=== PATIENT | male | born 1930 | race Caucasian/White ===

== ENCOUNTER 2017-04-04 22:17 | Emergency (ER) | payer MEDICARE, OTHER ==
[2015-10-07 10:43] VITALS: BMI 23.7
[~2017-04-04 22:17] MED LIST: ASCORBIC ACID500 MG PO; ASPIRIN EC81 M1 PO; ASPIRIN EC81 MG; ATROVENT 0.03%30 ML NS; AVAPRO300 MG PO; CALCIUM 600+D T1 TA1 PO; CALTRATE-600600 MG PO; CYMBALTA60 MG PO; HYDROCHLOROTH12.5 M1 PO; MOBIC7.5 MG PO; MULTIPLE VITAMI1 TA1 PO; NASONEX NASAL S17 GM NS; NORCO 5/325 TAB1 TA1 PO; NORVASC2.5 MG PO; PATANASE30.5 GM NS; PLAVIX75 MG PO; PRAVACHOL20 MG PO; RESTORIL15 MG PO; SPIRIVA18 MCG; SPIRIVA18 MCG INH; TOPROL XL25 MG PO; TRIGLIDE160 MG PO; TYLENOL ARTHRI650 MG PO; XANAX0.25 MG PO; ZOCOR20 MG PO; ZYLOPRIM100 MG PO
[2017-04-04 22:55] LABS: BASOPHILS 0.4 % (0-2); EOSINOPHILS 4.4 % (0-7); HEMATOCRIT 36.4 % (42.0-54.0); HEMOGLOBIN 12.4 g/dL (13.5-17.5); IMMATURE GRANULOCYTES 0.7 % (0-5); LYMPHOCYTES 20.6 % (15-50); MCH 32.8 pg (26.0-34.0); MCHC 34.1 g/dL (31.0-37.0); MCV 96.3 fL (80.0-100.0); MEAN PLATELET VOLUME 10.6 fL (7.4-10.4); MONOCYTES 7.3 % (2-11); NEUTROPHILS 66.6 % (40-80); PLATELET COUNT 240 10x3/uL (130-400); RBC 3.78 10x6/uL (4.20-6.10); RDW 13.4 % (11.5-14.5); WBC 5.6 10x3/uL (4.8-10.8)
[2017-04-04 23:06] LABS: ALBUMIN 3.8 g/dL (3.4-5.0); ANION GAP 13.6 mmol/L (8-16); BILIRUBIN - TOTAL 0.51 mg/dL (0.2-1.3); CALCIUM 8.7 mg/dL (8.5-10.1); CARBON DIOXIDE 26.1 mmol/L (21.0-32.0); POTASSIUM - SERUM 3.7 mmol/L (3.5-5.1); PROTEIN - SERUM 7.3 g/dL (6.4-8.2)
== END 2017-04-04 23:28 | disposition home or self-care (01) ==
LOC: D.ER 22:17
PROVIDERS: Emergency Medicine
DX: R55 Syncope and collapse (principal); N17.9 Acute kidney failure, unspecified; E86.0 Dehydration; I45.10 Unspecified right bundle-branch block

== ENCOUNTER → 2017-06-25 08:46 | Outpatient (CLI) | payer MEDICARE, OTHER ==
[2015-10-07 10:43] VITALS: BMI 23.7
== END | disposition home or self-care (01) ==
LOC: D.CT 08:46
DX: I71.4 Abdominal aortic aneurysm, without rupture (principal)

== ENCOUNTER → 2017-10-02 07:10 | Outpatient (CLI) | payer MEDICARE, OTHER ==
[~2017-10-02] VITALS: Ht 172.7 cm; Wt 78.6 kg
--- NOTE | ~2017-10-02 | HEMODYNAMI ---
PATIENT:LOVE HERRERA MEDICAL RECORD: [id number] : 34 LOCATION:D.CAT ADMISSION DATE: 10/02/17 Generatedon:10/02/20179:43 Patient name: LOVE HERRERA Patient #: [id number] SSN: : 1930 Date of study: 10/02/2017 Page: Of Hemodynamic Procedure Report Patient Data Patient Demographics Procedure consent was obtained First Name: LOVE Gender: Male Last Name: JAVIER : 1930 Patient #: [id number] Age: 86 year(s) Race: Unknown Additional ID: [id number] Contact details Address: [address] [place] [address] pt State: [place] City: [place] Zip code: [address] Past Medical History Allergies: No known allergies Admission Admission Data Admission Date: 10/02/2017 Admission Time: 7:10 Procedure Procedure Types Cath Procedure Peripheral Cath Diagnostic Procedure Cath Peripheral Sluub-Zpizueu-Zdq-Off Procedure Description Procedure Date Procedure Date: 10/02/2017 Procedure Start Time: 9:35 Procedure End Time: 9:43 Procedure Staff Name Function Aren Pa MD Performing Physician Stephanie Madsen RT Monitor Clinton Lucero RN Nurse Max Solis RT Scrub Procedure Data Cath Procedure Fluoroscopy Diagnostic fluoroscopy Total fluoroscopy Time: 0.6 time: 0.6 min min Diagnostic fluoroscopy Total fluoroscopy dose: 208 dose: 208 mGy mGy Contrast Material Contrast Material Type Amount (ml) Isovue 370 40 Entry Location Entry Primary Successful Side Size Upsize Upsize Entry Closure Succes sful Closure Location (Fr) 1 (Fr) 2 (Fr) Remarks Device Remarks Femoral Right 5 Fr Exoseal artery Estimated blood loss: 10 ml Diagnostic catheters Device Type Used For End Catheter Placement DIAGNOSTIC UF 5Fr Abdominal catheter ([id number]) aortogram with runoff Procedure Complications No complications Procedure Medications Medication Administration Route Dosage Oxygen NC 2 l/min Lidocaine 2% added to field 20 Heparin Flush Bag added to field 2 bags (1000units/500ml NS) 0.9% NaCl I.V. 100 ml/hr Versed I.V. 2 mg Fentanyl I.V. 100 mcg Versed I.V. 2 mg Fentanyl I.V. 50 mcg Versed I.V. 1 mg Hemodynamics Rest Heart Rate: 64 (bpm) Snapshots Pre Cath Intra NCS Post Cath Vital Signs Time Heart Resp SPO2 etCO2 NIBP (mmHg) Rhythm Pain Sedation Rate (ipm) (%) (mmHg) Status Level (bpm) 9:12:08 69 14 95 0 137/79(93) NSR 0 (11) 10(A) , No pain 9:16:51 66 13 96 28.4 144/69(116) NSR 0 (11) 10(A) , No pain 9:21:36 66 13 95 25.4 136/73(116) NSR 0 (11) 10(A) , No pain 9:26:20 63 14 96 28.4 126/64(106) NSR 0 (11) 10(A) , No pain 9:31:01 65 15 95 0 114/60(89) NSR 0 (11) 10(A) , No pain 9:35:40 66 15 96 23.2 123/66(92) NSR 0 (11) 10(A) , No pain 9:40:10 70 16 94 0 103/62(91) NSR 0 (11) 10(A) , No pain Medications Time Medication Route Dose Verified Delivered Reason Notes Effec tiveness by by 9:10:52 Oxygen NC 2 Aren Rodolfoie used for l/min Thierno Lucero RN procedure 9:10:59 Lidocaine 2% added 20ml Aren Younger for local to vial Thierno Pa MD anesthetic field 9:11:05 Heparin Flush added 2 Arenmarta Younger used for Bag to bags Thierno Pa MD procedure (1000units/500ml field NS) 9:11:14 0.9% NaCl I.V. 100 Aren Alonzo Per ml/hr Thierno Lucero RN physician 9:34:19 Versed I.V. 2 mg Aren Reynoldsie for Thierno Lucero RN sedation 9:34:26 Fentanyl I.V. 100 Aren Reynoldsie for mcg Thierno Lucero RN sedation 9:36:13 Versed I.V. 2 mg Aren Reynoldsie for Tauth MD Lucero RN sedation 9:36:22 Fentanyl I.V. 50 Aren Alonzo for mcg Thierno Lucero RN sedation 9:39:58 Versed I.V. 1 mg Aren Lucero RN sedation Procedure Log Time Note 8:53:08 Time tracking: Regular hours (M-F 7:00 - 5:00) 8:53:12 Plan of Care:Hemodynamics will remain stable., Cardiac rhythm will remain stable., Comfort level will be maintained., Respiratory function will remain adequate., Patient/ family verbilizes understanding of procedure., Procedure tolerated without complication., Recovers from procedure without complications.. 8:59:55 Max Solis RT(R) sent for patient. Start room use. 9:05:55 Patient received from Pre/Post Procedure Room to CCL 1 Alert and oriented. Tansferred to table in Supine position. 9:05:56 Warm blankets applied, and camilo hugger turned on for patient comfort. 9:05:56 Correct patient and procedure confirmed by team. 9:05:58 Signed procedure consent form obtained from patient. 9:05:59 ECG and BP/O2 sat monitors applied to patient. 9:06:02 Full Disclosure recording started 9:10:52 Oxygen 2 l/min NC was administered by Clinton Lucero RN; used for procedure; 9:10:59 Lidocaine 2% 20ml vial added to field was administered by Aren Pa MD; for local anesthetic; 9:11:05 Heparin Flush Bag (1000units/500ml NS) 2 bags added to field was administered by Aren Pa MD; used for procedure; 9:11:14 0.9% NaCl 100 ml/hr I.V. was administered by Clinton Lucero RN; Per physician; 9:11:17 Vital chart was started 9:14:41 Baseline sample Acquired. 9:14:44 Rhythm: sinus rhythm 9:14:55 H&P Date Dictated: 09/24/2017 Within 30 days and on chart., H&P Addendum completed by physician on day of procedure. (MUST COMPLETE FOR ALL OUTPATIENTS). 9:14:57 Pre-procedure instructions explained to patient. 9:14:57 Pre-op teaching completed and patient verbalized understanding. 9:15:00 Family in patients room. 9:15:02 Patient NPO since Midnight. 9:15:08 Patient allergic to No known allergies 9:15:40 Is the patient allergic to Iodine/contrast media? No. 9:15:41 Is patient on blood thinner?Yes 9:15:44 ACC The patient was administered the following blood thiners within the last 24 hours: ACCAspirin, ACCPlavix 9:15:46 Patient diabetic? No. 9:15:49 Previous problem with sedation/anesthesia? No ? 9:15:50 Snore? Yes 9:15:50 Sleep apnea? Yes 9:15:51 Deviated septum? No 9:15:52 Opens mouth fully? Yes 9:15:53 Sticks out tongue? Yes 9:15:59 Airway obstruction? Yes COPD 9:16:01 Dentures? No ? 9:16:07 Pre procedure: right dorsailis pedis pulse 2+ Normal; easily identifiable; not easily obliterated 9:16:09 Pre procedure: left dorsailis pedis pulse 2+ Normal; easily identifiable; not easily obliterated 9:16:12 Patient pain scale 0/10 ?. 9:16:20 IV patent on arrival in left forearm with 0.9% NaCl at [facility]. 9:16:23 Lab results completed and on chart. 9:16:26 Bilateral groins area was prepped with chlora-prep and draped in sterile fashion 9:16:27 Alarms reviewed by R. N. 9:16:27 Sharps counted by scrub and verified by R.N. 9:16:33 Use device set CATH PACK 9:16:44 ACIST Syringe (77399) opened to sterile field. 9:16:45 ACIST Hand Control (47252) opened to sterile field. 9:16:45 ACIST Manifold (59820) opened to sterile field. 9:16:46 Medline Cath Pack ([id number]) opened to sterile field. 9:16:47 Bag Decanter () opened to sterile field. 9:16:47 DIAGNOSTIC WIRE .035 260cm J wire (172541) opened to sterile field. 9:16:48 PERCUTANEOUS ENTRY 19GA needle opened to sterile field. 9:16:56 Tegaderm 4 x 4 (1626W) opened to sterile field. 9:26:23 Physician paged 9:29:41 Zero performed for pressure channel P1 9:33:21 Final Timeout: patient, procedure, and site verified with staff and physician. All members of the team are in agreement. 9:33:25 Left groin site verified by team. 9:33:27 Physical assessment completed. ASA score P 2 - A patient with mild systemic disease as per Aren Pa MD. 9:33:30 Sedation plan: IV Moderate Sedation Medication:Versed, Fentanyl 9:34:19 Versed 2 mg I.V. was administered by Clinton Lucero RN; for sedation; 9:34:26 Fentanyl 100 mcg I.V. was administered by Clinton Lucero RN; for sedation; 9:35:38 Procedure started. 9:35:48 Local anesthetic to left femerol artery with Lidocaine 2% by Aren Pa MD.INITIAL ACCESS ONLY 9:36:13 Versed 2 mg I.V. was administered by Clinton Lucero RN; for sedation; 9:36:22 Fentanyl 50 mcg I.V. was administered by Clinton Lucero RN; for sedation; 9:36:22 A 5 Fr sheath was inserted into the Right Femoral artery 9:36:33 A DIAGNOSTIC UF 5Fr catheter ([id number]) was advanced over the wire and used for Abdominal aortogram with runoff. 9:38:27 Catheter removed. 9:38:45 Sheath removed intact; hemostasis achieved with Exoseal to the Right Femoral artery. 9:38:47 Procedure ended.(Physican Out) 9:38:56 Fluoroscopy time 00.60 minutes. 9:38:59 Fluoroscopy dose: 208 mGy 9:38:59 Flurop Dose total: 208 9:39:47 Contrast amount:Isovue 370 40ml. 9:39:49 Sharps counted by scrub and verified by R.N. 9:39:50 Insertion/operative site no bleeding no hematoma. 9:39:54 Post-op/insertion site Left Femoral artery dressed using a 4 x 4 and Tegaderm. 9:39:58 Versed 1 mg I.V. was administered by Clinton Lucero RN; for sedation; 9:40:00 Post left femerol artery:stable, clean and dry 9:40:32 Post Procedure Pulses reassessed and unchanged 9:40:38 Post-procedure physical assessment completed. ASA score P 2 - A patient with mild systemic disease as per Aren Pa MD. 9:40:40 Post procedure rhythm: unchanged. 9:40:49 Estimated blood loss: 10 ml 9:40:51 Post procedure instruction explained to patient.Patient verbalizes understanding. 9:40:51 Patient needs reinforcement of post procedure teaching. 9:40:57 Procedure Complication : No complications 9:41:00 See physician's report for complete and final results. 9:41:24 EXOSEAL 5Fr (EX500) opened to sterile field. 9:41:56 Procedure and supply charges have been captured, reviewed, submitted and are correct. 9:43:07 Vital chart was stopped 9:43:08 Report given to Pre/Post Procedure Room. 9:43:11 Patient transfered to Pre/Post Procedure Room with Stretcher. 9:43:20 Procedure ended. 9:43:20 Full Disclosure recording stopped 9:43:22 End room use (Document Last) Device Usage Item Name Manufacture Quantity Catalog Hospital Part Current Minimal Lot# / Number Charge Number Stock Stock Serial# Code ACIST Acist 1 64571 030644 558807 225211 20 Syringe Medical (77494) Systems Inc ACIST Hand Acist 1 84575 593200 540595 986272 5 Control Medical (90022) Systems Inc ACIST Acist 1 19064 990968 440213 424705 5 Manifold Medical (27939) Systems Inc Medline Cath Cardinal 1 [id number] 999184 47784 876353 5 Pack Health ([id number]) Bag Decanter Microtek 1 2002S 803479 12700 389743 5 (2001S) Medical Inc. DIAGNOSTIC [facility] Eduardo 1 779051 055785 659327 420181 30 WIRE .035 260cm J wire (187755) PERCUTANEOUS Cook Medical 1 [id number] 652630 480930 5 ENTRY 19GA needle Tegaderm 4 x 3M 1 1626W 370247 266410 862291 5 4 (1626W) DIAGNOSTIC Cardinal 1 [id number] 349566 729267 780989 10 UF 5Fr Health catheter (205343N4) EXOSEAL 5Fr Cardinal 1 EX500 589284 103745 518707 10 (EX500) Health Signature Audit [place] Stage Time Signature Unsigned Intra-Procedure 10/02/2017 9:43:32 AM Counts RT(R) Signatures Monitor : Signature : Counts RT Date : Time : [address] [place] [address]
--- NOTE | ~2017-10-02 | OP ---
PATIENT NAME: LOVE HERRERA MEDICAL RECORD: [id number] :34 LOCATION:D.CAT ADMISSION DATE: SURGEON: NATALYA SCHWARTZ MD DATE OF OPERATION: 10/02/2017 PROCEDURES: 1. Aortofemoral runoff. 2. Abdominal aortography. INDICATION: Claudication and peripheral vascular disease. PROCEDURE IN DETAIL: After informed consent was obtained and after a detailed description of risks, benefits as well as alternative therapies, the patient elected to proceed with angiogram and aortofemoral runoff. The left femoral area was prepped and draped in normal sterile fashion. Left femoral artery was cannulated via modified Seldinger technique with placement of 5-Macedonian sheath. All catheters exchanged through this sheath. FINDINGS: Abdominal aortography was performed. The catheter was pulled down for aortofemoral runoff. Abdominal aortography reveals a well-positioned endovascular stent graft, no significant stenosis. The stent graft extends into both iliacs. It is widely patent through the both common iliacs. RIGHT LEG: A. Common iliac is replaced with a stent graft as above. The internal iliac and external iliacs are widely patent. B. Femoral system: The common superficial and deep femoral are widely patent with only mild irregularities. C. Popliteal and infrapopliteal vessels are patent with 3-vessel runoff to the foot, although diffusely diseased. LEFT LEG: A. Common iliac is replaced with a stent graft as above. The internal iliac and external iliacs are widely patent. B. Femoral system: The common superficial and deep femoral are widely patent with only mild irregularities. C. Popliteal and infrapopliteal vessels are patent with 3-vessel runoff to the foot, although diffusely diseased. OVERALL IMPRESSION: Wide patency of the previous abdominal aortic and iliac stent graft. No significant stenosis elsewise. Continue medical management of the peripheral vascular disease and peripheral risk factors. TRANSINT:[id number] Voice Confirmation ID: [id number] DOCUMENT ID: [id number] NATALYA SCHWARTZ MD at 1444 CC: [id number] DICTATION DATE: 10/02/17 0943 FARM RANCHER: 10/02/17 1314 DEP CLI 10/02/17 [facility] [address] [place] [id number]
[~2017-10-02 07:10] MED LIST changes: +BUPROPION XL150 MG PO; +CILOSTAZOL100 MG PO; +FUROSEMIDE20 MG PO
[2017-10-02 07:39] VITALS: BP 106/73; Ht 172.7 cm; Wt 78.6 kg
[2017-10-02 07:56] LABS: BASOPHILS 0.7 % (0-2); EOSINOPHILS 5.3 % (0-7); HEMATOCRIT 36.2 % (42.0-54.0); HEMOGLOBIN 12.5 g/dL (13.5-17.5); IMMATURE GRANULOCYTES 1.7 % (0-5); LYMPHOCYTES 16.6 % (15-50); MCH 33.1 pg (26.0-34.0); MCHC 34.5 g/dL (31.0-37.0); MCV 95.8 fL (80.0-100.0); MEAN PLATELET VOLUME 10.3 fL (7.4-10.4); MONOCYTES 10.9 % (2-11); NEUTROPHILS 64.8 % (40-80); RBC 3.78 10x6/uL (4.20-6.10); RDW 13.5 % (11.5-14.5); WBC 5.4 10x3/uL (4.8-10.8)
[2017-10-02 07:59] LABS: PLATELET COUNT 379 10x3/uL (130-400)
[2017-10-02 08:04] LABS: ANION GAP 15.8 mmol/L (8-16); CALCIUM 9.3 mg/dL (8.5-10.1); CARBON DIOXIDE 24.2 mmol/L (21.0-32.0); CREATININE - SERUM 1.9 mg/dL (0.6-1.3)
== END | disposition home or self-care (01) ==
LOC: D.CATH 07:10
PROVIDERS: Internal Medicine Interventional Cardiology
DX: I70.219 Atherosclerosis of native arteries of extremities with intermittent claudication, unspecified extremity (principal); I25.10 Atherosclerotic heart disease of native coronary artery without angina pectoris; E78.5 Hyperlipidemia, unspecified; I10 Essential (primary) hypertension; Z01.812 Encounter for preprocedural laboratory examination

== ENCOUNTER → 2018-11-13 08:02 | Outpatient (CLI) | payer MEDICARE, OTHER ==
[2017-10-02 07:39] VITALS: BMI 26.3
== END | disposition home or self-care (01) ==
LOC: D.CT 08:02
PROVIDERS: ATTEND Internal Medicine Cardiovascular Disease
DX: I71.4 Abdominal aortic aneurysm, without rupture (principal)

== ENCOUNTER → 2019-05-18 09:02 | Outpatient (CLI) | payer MEDICARE, OTHER ==
[2017-10-02 07:39] VITALS: BMI 26.3
--- NOTE | ~2019-05-18 | ST ---
PATIENT:ANDREA HERRERA MEDICAL RECORD: [id number] SEX: M LOCATION:[facility] ORDER #: ADMISSION DATE: 05/18/19 AGE OF PATIENT: 88 REFERRING PHYSICIAN: INTERPRETING PHYSICIAN: NATALYA SCHWARTZ MD DATE OF SERVICE: 05/18/2019 PROCEDURE: Nuclear stress test. INDICATION: Angina, coronary artery disease, shortness of breath, hypertension and hyperlipidemia. He was exercised on standard Lexiscan protocol with 33 mCi of sestamibi injected at peak stress, 11 mCi used previously for rest images. FINDINGS: Gated SPECT reveals preserved ejection fraction at 59% with good wall motioning and thickening and brightening throughout all segments. SPECT imaging: Cardiolite was used as myocardial perfusion agent. There is reversibility inferiorly, apically, and laterally. This includes the basal, mid, apical, inferior segments, the apex itself, apical lateral, mid lateral, basal lateral segments. The degree of reversibility is mild to moderate. The amount of myocardium involved is large. OVERALL IMPRESSION: This is an intermediate to high risk nuclear stress test. Reversibility inferiorly, apically, and laterally suggestive of hemodynamically significant multivessel coronary artery disease. TRANSINT:[id number] Voice Confirmation ID: [id number] DOCUMENT ID: [id number] NATALYA SCHWARTZ MD CC: BARRY PETE [id number] DICTATION DATE: 05/18/19 1701 MAT CUTTER: 05/19/19 0737 [facility] [place] 05/18/19 [facility] [address] [place] [address]
== END | disposition home or self-care (01) ==
LOC: D.HCCARDIO 09:02
PROVIDERS: ATTEND Internal Medicine Interventional Cardiology
DX: I25.10 Atherosclerotic heart disease of native coronary artery without angina pectoris (principal)

== ENCOUNTER 2019-05-29 07:04 | Outpatient (CLI) | payer MEDICARE, OTHER ==
[~2019-05-29] VITALS: Ht 172.7 cm; Wt 74.1 kg
--- NOTE | ~2019-05-29 | OP ---
PATIENT NAME: ANDREA HERRERA MEDICAL RECORD: [id number] :34 LOCATION:D.CAT ADMISSION DATE: SURGEON: NATALYA SCHWARTZ MD DATE OF OPERATION: 05/29/2019 PROCEDURES: 1. PTCA stent vein graft to RCA. 2. Left heart catheterization. 3. Selective coronary angiography. 4. Vein graft angiography. 5. MORENO angiography. INDICATION: Angina and coronary artery disease. PROCEDURE IN DETAIL: After informed consent was obtained and after a detailed description of risks, benefits as well as alternative therapies, the patient elected to proceed with angiogram and angioplasty. The right femoral area was prepped and draped in normal sterile fashion. Right femoral artery was cannulated via modified Seldinger with placement of 6-Azeri sheath. All catheters exchanged through this sheath. FINDINGS: Left ventriculogram was performed in standard 30-degree ROSALES view, reveals global hypokinesis, ejection fraction mildly depressed at 40%. SELECTIVE CORONARY ANGIOGRAPHY: 1. Left main is with 80% stenosis. 2. The left anterior descending is totally occluded. 3. Left circumflex is totally occluded. 4. MORENO to the LAD is patent. Distal LAD is patent, diffusely diseased. 5. Vein graft to the first obtuse marginal is patent. Distal obtuse marginal is widely patent. 6. Vein graft to the second obtuse marginal is patent. Distal obtuse marginal is widely patent. 7. Right coronary is totally occluded. 8. Vein graft to the right coronary is patent; however, there is 90% stenosis in the mid shaft. PTCA STENT OF THE VEIN GRAFT TO THE RCA: The stent used 3.5 x 15 mm [place]. Result was 0% residual stenosis. OVERALL IMPRESSION: Successful percutaneous transluminal coronary angioplasty stent of the vein graft to the right coronary artery going from 90% initial stenosis to 0% residual. TRANSINT:[id number] Voice Confirmation ID: [id number] DOCUMENT ID: [id number] NATALYA SCHWARTZ MD CC: [id number] DICTATION DATE: 05/29/19904 WEAVING SUPERVISOR: 05/29/19 1137 [facility] [address] [id number]
--- NOTE | ~2019-05-29 | HEMODYNAMI ---
PATIENT:ANDREA HERRERA MEDICAL RECORD: [id number] : 34 LOCATION:[facility] ADMISSION DATE: 05/29/19 Generatedon:05/29/20199:08 Patient name: ANDREA HERRERA Patient #: [id number] SSN: : Date of study: 05/29/2019 Page: Of Hemodynamic Procedure Report Patient Data Patient Demographics Procedure consent was obtained First Name: ANDREA Gender: Male Last Name: JAVIER : 1930 Middle Initial: LYNNETTE Age: 88 year(s) Patient #: [id number] Race: Unknown Additional ID: [id number] Contact details [address]: [address] [place] [address] [place] State: [place] City: [place] Zip code: [address] Past Medical History Performed procedures and imaging results Date Procedure Procedure Results Comments Stress testing Positive->Intermediate with SPECT MPI risk History of disease Date Diagnosis Comments CAD Allergies: No known allergies Admission Admission Data Admission Date: 05/29/2019 Admission Time: 7:04 Lab Results Lab Result Date: 05/29/2019 Lab Result Time: 0:00 Biochemistry Name Units Result Min Max BUN mg/dl 26 --(----)-* 7 18 Creatinine mg/dl 2.1 --(----)-* 0.6 1.3 eGFR ml/min 32 *-(----)-- 90 120 NONAFRICAN CBC Name Units Result Min Max Hematocrit % 35.2 *-(----)-- 42 54 Hemoglobin g/dl 11.7 *-(----)-- 13.5 17.5 Procedure Procedure Types Cath Procedure Diagnostic Procedure [facility] w/Coronaries Sedation Charges Moderate Sedation up to 15 minutes PCI Procedure Coronary Stent Coronary Stent Initial Hemochron ACT Test Procedure Description Procedure Date Procedure Date: 05/29/2019 Procedure Start Time: 8:48 Procedure End Time: 9:05 Procedure Staff Name Function Aren Pa MD Performing Physician Clinton Lucero RN Nurse Ann Marie Avilez RT Monitor Vanesa Bowen RT Scrub Procedure Data Cath Procedure Fluoroscopy Diagnostic fluoroscopy Total fluoroscopy Time: 3.9 time: 3.9 min min Diagnostic fluoroscopy Total fluoroscopy dose: 508 dose: 508 mGy mGy Contrast Material Contrast Material Type Amount (ml) Isovue 370 91 Entry Location Entry Primary Successful Side Size Upsize Upsize Entry Closure Succes sful Closure Location (Fr) 1 (Fr) 2 (Fr) Remarks Device Remarks Femoral Right 5 Fr 6 Fr Exoseal artery Short Estimated blood loss: 10 ml Diagnostic catheters Device Type Used For End Catheter Placement MULTIPACK Pigtail 5 Fr Procedure catheter MULTIPACK JL 4.0 5Fr Procedure catheter MULTIPACK 3DRC 5Fr Procedure catheter Procedure Complications No complications Procedure Medications Medication Administration Route Dosage Oxygen etCO2 Nasal cannula 2 l/min Lidocaine 2% added to field 20 Heparin Flush Bag added to field 2 bags (1000units/500ml NS) 0.9% NaCl I.V. 100 ml/hr Versed I.V. 2 mg Fentanyl I.V. 50 mcg Versed I.V. 2 mg Fentanyl I.V. 50 mcg Heparin Bolus I.V. 4000 units Integrilin (Bolus I.V. 6.8 ml 2mg/ml) Plavix P.O. 600 mg Hemodynamics Rest HGB: 11.7 (g/dl) Heart Rate: 56 (bpm) Snapshots Pre Cath Intra NCS Post Cath Vital Signs Time Heart Resp SPO2 etCO2 NIBP (mmHg) Rhythm Pain Sedation Rate (ipm) (%) (mmHg) Status Level (bpm) 8:27:18 49 14 100 29.9 156/65(81) NSR 0 (11) 10(A) , No pain 8:31:36 55 10 92 0 128/56(103) NSR 0 (11) 10(A) , No pain 8:36:39 56 13 95 0 151/70(120) NSR 0 (11) 10(A) , No pain 8:41:04 56 17 96 0 119/61(101) NSR 0 (11) 10(A) , No pain 8:45:16 52 15 98 0 126/67(106) NSR 0 (11) 10(A) , No pain 8:49:34 63 13 99 8.2 129/56(107) NSR 0 (11) 10(A) , No pain 8:53:52 56 11 96 0 117/57(101) NSR 0 (11) 9(A) , No pain 8:58:02 57 14 94 0 113/51(93) NSR 0 (11) 9(A) , No pain 9:02:13 59 13 95 0 115/55(95) NSR 0 (11) 10(A) , No pain Medications Time Medication Route Dose Verified Delivered Reason Notes Effectiveness by by 8:30:18 Oxygen etCO2 2 Aren Alonzo used for Nasal l/min Thierno Lucero RN procedure cannula 8:30:24 Lidocaine 2% added 20ml Aren Younger for local to vial Thierno Pa MD anesthetic field 8:30:30 Heparin Flush added 2 Aren Aren used for Bag to bags Thierno Pa MD procedure (1000units/500ml field NS) 8:30:41 0.9% NaCl I.V. 100 Aren Alonzo Per physician ml/hr Thierno Lucero RN 8:47:25 Versed I.V. 2 mg Aren Alonzo for sedation Thierno Lucero RN 8:47:31 Fentanyl I.V. 50 Aren Alonzo for sedation mcg Thierno Lucero RN 8:52:44 Versed I.V. 2 mg Aren Alonzo for sedation Thierno Lucero RN 8:52:49 Fentanyl I.V. 50 Aren Alonzo for sedation mcg Thierno Lucero RN 8:57:39 Heparin Bolus I.V. 4000 Aren Alonzo for verifi ed units Thierno Lucero RN anticoagulation with dr pa 8:58:42 Integrilin I.V. 6.8 Aren Alonzo for wasted (Bolus 2mg/ml) ml Thierno Lucero RN antiplatelet 3.2 ml therapy of vial 9:06:33 Plavix P.O. 600 Aren Alonzo for mg Thierno Lucero RN antiplatelet therapy Procedure Log Time Note 8:08:57 Informed consent obtained and on chart 8:09:19 Procedure Status Elective Heart Cath (OP). 8:09:22 Clinton Lucero RN sent for patient. Start room use. 8:09:23 Time tracking: Regular hours (M-F 7:00 - 5:00) 8:09:27 Plan of Care:Hemodynamics will remain stable., Cardiac rhythm will remain stable., Comfort level will be maintained., Respiratory function will remain adequate., Patient/ family verbilizes understanding of procedure., Procedure tolerated without complication., Recovers from procedure without complications.. 8:10:00 H&P Date Dictated: 05/06/2019 Within 30 days and on chart., H&P Addendum completed by physician on day of procedure. (MUST COMPLETE FOR ALL OUTPATIENTS). 8:10:06 Patient allergic to No known allergies 8:11:38 Lab Result : BUN 26 mg/dl 8::38 Lab Result : eGFR NONAFRICAN 32 ml/min 8::38 Lab Result : Creatinine 2.1 mg/dl 8::38 Lab Result : Hemoglobin 11.7 g/dl 8::38 Lab Result : Hematocrit 35.2 % 8:15:28 Risk of Mortality: .9 8:15:31 Risk of blood transfusion: .7 8:15:34 Risk of BRANDI: 5.6 8:18:09 Stress Test: yes; abnormal MULTIVESSEL 8:18:29 Patient received from Pre/Post Procedure Room to CCL 1 Alert and oriented. Tansferred to table in Supine position. 8:18:30 Warm blankets applied, and camilo hugger turned on for patient comfort. 8:18:30 Correct patient and procedure confirmed by team. 8:18:31 ECG and BP/O2 sat monitors applied to patient. 8:25:55 Vital chart was started 8:25:56 Full Disclosure recording started 8:25:57 Pre-procedure instructions explained to patient. 8:25:58 Pre-op teaching completed and patient verbalized understanding. 8:26:00 Family in waiting room. 8:26:02 Patient NPO since Midnight. 8:26:09 Is the patient allergic to Iodine/contrast media? No. 8:26:11 Was the patient premedicated? Yes 8:26:13 Is patient on blood thinner?Yes 8:26:16 ACC The patient was administered the following blood thiners within the last 24 hours: ACCAspirin 8:26:21 Patient diabetic? No. 8:26:23 If diabetic: On Metformin? N/A 8:26:24 ----Pre-sedation anethsthesia assessment.---- 8:26:27 Previous problem with sedation/anesthesia? No ? 8:26:28 Snore? Yes 8:26:29 Sleep apnea? Yes 8:26:31 Deviated septum? No 8:28:14 Opens mouth fully? Yes 8:28:15 Sticks out tongue? Yes 8:28:20 Airway obstruction? Yes COPD 8:28:23 Dentures? No ? 8:28:31 Pre procedure: right dorsailis pedis pulse 2+ Normal; easily identifiable; not easily obliterated 8:28:33 Patient pain scale 0/10 ?. 8:28:50 IV patent on arrival in left antecubital with 0.9% NaCl at [facility]. 8:29:05 Lab results completed and on chart. 8:29:09 Right groin area was prepped with chlora-prep and draped in sterile fashion 8:29:10 Alarms reviewed by R. N. 8:29:11 Sharps counted by scrub and verified by R.N. 8:29:18 Rhythm: sinus rhythm 8:29:20 Baseline sample Acquired. 8:29:33 Use device set Femoral Dx 8:29:34 ACIST Syringe (17818) opened to sterile field. 8:29:35 Bag Decanter (2002S) opened to sterile field. 8:29:35 Medline Cath Pack ([id number]) opened to sterile field. 8:29:36 ACIST Hand Control (70223) opened to sterile field. 8:29:37 ACIST Manifold (86478) opened to sterile field. 8:29:37 DIAGNOSTIC Multipack 5Fr catheter set (SW2465) opened to sterile field. 8:29:40 SHEATH 5FR [place] (PDH235) opened to sterile field. 8:29:40 EMERALD Guide Wire (193-153) opened to sterile field. 8:30:18 Oxygen 2 l/min etCO2 Nasal cannula was administered by Clinton Lucero RN; used for procedure; Verbal order read back and verified. 8:30:24 Lidocaine 2% 20ml vial added to field was administered by Aren Pa MD; for local anesthetic; Verbal order read back and verified. 8:30:30 Heparin Flush Bag (1000units/500ml NS) 2 bags added to field was administered by Aren Pa MD; used for procedure; Verbal order read back and verified. 8:30:41 0.9% NaCl 100 ml/hr I.V. was administered by Clinton Lucero RN; Per physician; Verbal order read back and verified. 8:46:20 --------ALL STOP TIME OUT------ 8:46:21 Final Timeout: patient, procedure, and site verified with staff and physician. All members of the team are in agreement. 8:46:23 Right groin site verified by team. 8:46:27 Fire Safety Assessment: A--An alcohol-based skin anteseptic being used preoperatively., C--Open oxygen or nitrous oxide is being used., D--An ESU, laser, or fiber-optic light is being used. 8:46:31 Physical assessment completed. ASA score P 2 - A patient with mild systemic disease as per Aren Pa MD. 8:46:35 3b) 30-44 Moderately reduced kidney function. 8:46:40 Maximum allowable contrast dose (3.7 X eGFR X 0.75)89 ml. 8:46:46 Sedation plan: IV Moderate Sedation Medication:Versed, Fentanyl 8:47:25 Versed 2 mg I.V. was administered by Clinton Lucero RN; for sedation; Verbal order read back and verified. 8:47:31 Fentanyl 50 mcg I.V. was administered by Clinton Lucero RN; for sedation; Verbal order read back and verified. 8:48:17 Procedure started. 8:48:44 Local anesthetic to right femoral artery with Lidocaine 2% by Aren Pa MD.INITIAL ACCESS ONLY 8:49:34 A 5 Fr sheath was inserted into the Right Femoral artery 8:49:51 A MULTIPACK Pigtail 5 Fr catheter was advanced over the wire and used for Procedure. 8:49:56 LV gram done using ROSALES 8:50:00 Injector settings: Ml/sec: 10, Volume: 20, 8:50:33 EF : 40 % 8:50:36 Catheter removed. 8:50:41 A MULTIPACK JL 4.0 5Fr catheter was advanced over the wire and used for Procedure. 8:51:26 LCA angiography performed. 8:51:34 Catheter removed. 8:51:39 A MULTIPACK 3DRC 5Fr catheter was advanced over the wire and used for Procedure. 8:52:44 Versed 2 mg I.V. was administered by Clinton Lucero RN; for sedation; Verbal order read back and verified. 8:52:49 Fentanyl 50 mcg I.V. was administered by Clinton Lucero RN; for sedation; Verbal order read back and verified. 8:52:51 MORENO to LAD angiography performed. 8:53:47 RCA angiography performed. 8:54:01 Catheter removed. 8:54:03 GUIDE 6FR AR 2.0 catheter ([id number]) opened to sterile field. 8:55:35 SVG to Circ angiography performed. 8:56:32 Catheter removed. 8:56:35 GUIDE 6FR MB 1 SH catheter ([id number]) opened to sterile field. 8:57:02 SHEATH 6FR [place] (KXE962) opened to sterile field. 8:57:06 Proceeding to intervention. 8:57:15 Sheath upsized to a 6 Fr Short. 8:57:27 INFLATOR Merit BasixCompak (KK4134) opened to sterile field. 8:57:39 Heparin Bolus 4000 units I.V. was administered by Clinton Lucero RN; for anticoagulation; verified with dr pa Verbal order read back and verified. 8:57:50 Asahi Minamo 190cm wire opened to sterile field. 8:58:04 6 Fr MB1 SH guide catheter was inserted over the wire 8:58:10 MINAMO 190 wire advanced. 8:58:29 Wire advanced across lesion. 8:58:42 Integrilin (Bolus 2mg/ml) 6.8 ml I.V. was administered by Clinton Lucero RN; for antiplatelet therapy; wasted 3.2 ml of vial Verbal order read back and verified. 8:58:58 Pre PCI Site: [place] mRCA has 90% stenosis. 9:00:05 Place stent Inflation Number: 1 A KEE RX 3.5 x 15 stent ([id number]) was prepped and advanced across the Mid RCA . The stent was deployed at 15 MELLISA for 0:00 (min:sec) . 9:00:22 Stent catheter was removed intact over wire. 9:00:23 Wire removed. 9:00:24 Guide catheter removed. 9:00:27 EXOSEAL 6Fr (EX600) opened to sterile field. 9:00:38 Sheath removed intact; hemostasis achieved with Exoseal to the Right Femoral artery. 9:01:41 Procedure ended.(Physican Out) 9:01:45 Fluoroscopy time 03.90 minutes. 9:01:50 Fluoroscopy dose: 508 mGy 9:01:50 Flurop Dose total: 508 9:02:00 Dose Area Product 62657 mGy/cm. 9:02:06 Contrast amount:Isovue 370 91ml. 9:02:08 Maximum allowable dose exceeded? Yes. 9:02:09 Sharps counted by scrub and verified by R.N. 9:02:14 Post-op/insertion site Right Femoral artery dressed using a 4 x 4 and Tegaderm. 9:02:23 Post right femoral artery:stable, soft, clean and dry 9:02:25 Post Procedure Pulses reassessed and unchanged 9:02:28 Post procedure: right dorsailis pedis pulse 2+ Normal; easily identifiable; not easily obliterated. 9:02:32 Post-procedure physical assessment completed. ASA score P 2 - A patient with mild systemic disease as per Aren Pa MD. 9:02:38 Post procedure rhythm: unchanged. 9:02:41 Tegaderm 4 x 4 (1626W) opened to sterile field. 9:02:47 Estimated blood loss: 10 ml 9:02:49 Post procedure instruction explained to patient.Patient verbalizes understanding. 9:02:49 Patient needs reinforcement of post procedure teaching. 9:03:46 Procedure type changed to Cath procedure, Diagnostic procedure, LHC, C w/Coronaries, Sedation Charges, Moderate Sedation up to 15 minutes, PCI procedure, Coronary Stent, Coronary Stent Initial, Hemochron ACT Test 9:04:38 Procedure Complication : No complications 9:04:41 Vital chart was stopped 9:04:42 [facility] Findings: MVD- PCI performed (see procedure note) 9:04:44 Operative report dictated upon procedure completion. 9:04:44 See physician's report for complete and final results. 9:05:50 Procedure and supply charges have been captured, reviewed, submitted and are correct. 9:05:53 Report given to Pre/Post Procedure Room. 9:05:57 Patient transfered to Pre/Post Procedure Room with Stretcher. 9:05:59 Procedure ended. 9:05:59 Full Disclosure recording stopped 9:06:33 Plavix 600 mg P.O. was administered by Clinton Lucero RN; for antiplatelet therapy; Verbal order read back and verified. 9:07:00 End room use (Document Last) 9:07:14 ACT drawn and resulted at 240 seconds. (normal therapeutic range 180-240 seconds). 9:07:47 ACT drawn and resulted at ? seconds. (normal therapeutic range 180-240 seconds). Intervention Summary Intervention Notes Time ActionType Lesion and Equipment Used Action# Pressure Duration Attributes 9:00:05 Place stent Mid RCA KEE RX 3.5 x 1 15 00:00 15 stent ([id number]) Device Usage Item Name Manufacture Quantity Catalog Hospital Part [facility] Lot# / Number Charge Number Stock Stock Serial# Code ACIST Syringe Acist 1 82823 079720 684447 680937 20 (02823) [employer] Bag Decanter Microtek 1 2001S 515796 42683 711734 5 (2001S) Medical Inc. Medline Cath Medline 1 [id number] 190508 92058 771259 5 Pack ([id number]) ACIST Hand Acist 1 78635 316715 476907 074674 5 Control Medical (85177) Systems Inc ACIST Manifold Acist 1 58574 198711 114808 129852 5 (45572) [employer] Inc DIAGNOSTIC Cardinal 1 BG7016 426496 71303 410888 30 Multipack 5Fr Health catheter set (LC7443) SHEATH 5FR Terumo 1 PPB330 038129 498280 604255 5 [place] (CGS790) EMERALD Guide Cardinal 1 502-455 176960 015038 661398 5 Wire (502-455) Health MULTIPACK Cardinal 1 169122 5 Pigtail 5 Fr Health catheter MULTIPACK JL Cardinal 1 316308 5 4.0 5Fr Health catheter MULTIPACK 3DRC Cardinal 1 406148 5 5Fr catheter Health GUIDE 6FR AR Medtronic 1 [id number] 636328 32008 753762 1 2.0 catheter ([id number]) GUIDE 6FR MB 1 Medtronic 1 [id number] 781322 24440 374935 1 SH catheter ([id number]) SHEATH 6FR Terumo 1 VDN551 362220 657474 613566 40 [place] (TSC818) INFLATOR Merit Merit 1 IY0564 836572 978783 308039 15 [facility] ([id number]) [facility] Intecc 1 [id number] 078930 1760010 0 190cm wire KEE RX 3.5 x Medtronic 1 [id number] 319453 1609957 846142 5 [id number] 15 stent ([id number]) EXOSEAL 6Fr Cardinal 1 EX600 815201 344416 266582 10 (EX600) Health Tegaderm 4 x 4 3M 1 1626W 941059 390296 914767 5 (1626W) Signature Audit [place] Stage Time Signature Unsigned Intra-Procedure 05/29/2019 Ann Marie Avilez 9:07:28 AM RT(R) Intra-Procedure 05/29/2019 Clinton Lucero RN 9:07:47 AM Intra-Procedure 05/29/2019 Aren Pa 9:08:11 AM [facility] [address] [place] [address]
[2019-05-29] MEDS ORDERED: PRAVACHOL20 MG PO (07:19)
[2019-05-29 07:31] VITALS: BP 138/43; Ht 172.7 cm; Wt 74.1 kg
[2019-05-29 07:48] LABS: BASOPHILS 0.9 % (0-2); EOSINOPHILS 6.1 % (0-7); HEMATOCRIT 35.2 % (42.0-54.0); HEMOGLOBIN 11.7 g/dL (13.5-17.5); IMMATURE GRANULOCYTES 1.7 % (0-5); LYMPHOCYTES 17.2 % (15-50); MCH 32.1 pg (26.0-34.0); MCHC 33.2 g/dL (31.0-37.0); MCV 96.4 fL (80.0-100.0); MEAN PLATELET VOLUME 10.6 fL (7.4-10.4); MONOCYTES 13.5 % (2-11); NEUTROPHILS 60.6 % (40-80); PLATELET COUNT 314 10x3/uL (130-400); RBC 3.65 10x6/uL (4.20-6.10); RDW 13.3 % (11.5-14.5); WBC 5.4 10x3/uL (4.8-10.8)
[2019-05-29 07:58] LABS: ANION GAP 12.6 mmol/L (8-16); CALCIUM 8.5 mg/dL (8.5-10.1); CARBON DIOXIDE 27.5 mmol/L (21.0-32.0); CHOL - HDL RATIO 4.1 ratio (2.3-4.9); CREATININE - SERUM 2.1 mg/dL (0.6-1.3); LDL-HDL RATIO 2.5 ratio (1.5-3.5); POTASSIUM - SERUM 4.1 mmol/L (3.5-5.1)
--- NOTE | 2019-05-29 09:15 | NUR ---
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 PT AWAKE BUT DROWSY, DENIES PAIN OR DISCOMFORT. IV PATENT INFUSING VIA ORDERS TO L ARM. PT PLACED ON CARDIAC MONITORS , HR AKANKSHA, 53, BP 141/39, SAT 100 ON ROOM AIR. R GROIN SOFT, DRESSING CDI NO BLEEDING OR S/S HEMATOMA NOTED. LEG PINK AND WARM, PEDAL PULSES PALPABLE. PT INSRUCTED TO LAY FLAT AND KEEP HEAD ON PILLOW. CALL LIGHT IN REACH, FAMILY AT BS.
--- NOTE | 2019-05-29 09:15 | NUR ---
PT RECEIVED VIA STRETCHER FROM [employer]ER[employer] INSURANCE AGENT FOR RECOVERY. PT AWAKE BUT DROWSY, DENIES PAIN OR DISCOMFORT. IV PATENT INFUSING VIA ORDERS TO L ARM. PT PLACED ON CARDIAC MONITORS, HR SB RATE 53, BP 141/39, SAT 100 ON ROOM AIR. R GROIN W 6FR EXOCELE, DRESSING CDI NO BLEEDING OR S/S HEMATOMA NOTED. PT INSTRUCTED TO LAY FLAT W HEAD ON PILLOW. LEG PINK AND WARM PEDAL PULSES PALPABLE. CALL LIGHT IN REACH, FAMILY AT BS.
[2019-05-29] MEDS ORDERED: PLAVIX75 MG (09:23)
--- NOTE | 2019-05-29 09:30 | NUR ---
PT GIVEN ZOPHRAN 4MG PER ORDERS FOR C/O NAUSEA.
--- NOTE | 2019-05-29 09:35 | NUR ---
PT C/O HEARTBURN AND NAUSEA, ZOPHRAN 4MG GIVEN PER ORDERS. O2 ON AT 2L/NC. R GROIN SOFT, DRESSING CDI NO BLEEDING OR S/S HEMATOMA NOTED.
--- NOTE | 2019-05-29 09:45 | NUR ---
PT RESTING W/O COMPLAINTS. IV INFUSING VIA ORDERS. VSS. R GROIN SOFT, DRESSING CDI NO BLEEDING OR S/S HEMATOMA NOTED. CALL LIGHT IN REACH AND FAMILY AT BS
--- NOTE | 2019-05-29 10:30 | NUR ---
PT RESTING W/O COMPLAINTS. STATES NAUSEA IS GONE. R GROIN SOFT, DRESSING REMAINS CDI NO BLEEDING OR S/S HEMATOMA NOTED. VSS. PT C/O BEING COLD, DOMINICK HUGGER PLACED ON. CALL LIGHT IN REACH, PT DENIES OTHER NEEDS AT THIS TIME. FAMILY REMAINS AT BS
--- NOTE | 2019-05-29 11:00 | NUR ---
PT RESTING COMFORTABLY, VSS. R GROIN SOFT, DRESSING REMAINS CDI NO BLEEDING OR S/S HEMATOMA NOTED. CALL LIGHT IN REACH.
--- NOTE | 2019-05-29 11:30 | NUR ---
GROIN REMAINS SOFT, NO S/S HEMATOMA. VSS. FAMILY AT BEDSIDE. PT DENIES PAIN OR NEEDS AT THIS TIME. CALL LIGHT IN REACH
--- NOTE | 2019-05-29 12:00 | NUR ---
PT RESTING W/O COMPLAINTS. R GROIN SOFT, DRESSING CDI NO S/S HEMATOMA NOTED. HOB ELEVATED SLIGHTLY, SANDWICH TRAY AND DRINK SERVED. PT DENIES PAIN OR DISCOMFORT. O2 REMOVED, SAT 99 ON ROOM AIR. CALL LIGHT IN REACH
--- NOTE | 2019-05-29 12:40 | NUR ---
PT TOLERATED PO FOOD AND FLUIDS W/O NAUSEA. GROIN SOFT, DRESSING REMAINS CDI NO S/S HEMATOMA NOTED. VSS. CALL LIGHT IN REACH.
--- NOTE | 2019-05-29 12:57 | NUR ---
DISCHARGE INSTRUCTIONS REVIEWED W PT AND , BOTH VERBALIZED UNDERSTANDING. EXPLAINED IMPORTANCE OF GETTING PLAVIX FILLED AND TO START TAKING TOMORROW. IV REMOVED PER Edgardo. CLINT URIBE W CATH INTACT. MONITORS REMOVED AND PT UP TO DRESS FOR DISCHARGE.
--- NOTE | 2019-05-29 13:02 | NUR ---
PT TO BR VIA WC, VOIDING W/O DIFFICULITY. 1305 PT DISCHARGED VIA WC TO WAITING IN PRIVATE VEHICLE. PT HAD ALL BELONGINGS AND DISCHARGE PAPERWORK IN HAND
== END 2019-05-29 13:03 | disposition home or self-care (01) ==
LOC: D.CATH 07:04
PROVIDERS: ATTEND Internal Medicine Interventional Cardiology
DX: I25.119 Atherosclerotic heart disease of native coronary artery with unspecified angina pectoris (principal); E78.00 Pure hypercholesterolemia, unspecified; E78.5 Hyperlipidemia, unspecified; I10 Essential (primary) hypertension; I73.9 Peripheral vascular disease, unspecified; R06.09 Other forms of dyspnea
CPT/HCPCS: 93458; C9600

== ENCOUNTER → 2019-11-09 09:34 | Outpatient (CLI) | payer MEDICARE, OTHER ==
[2019-05-29 07:31] VITALS: BMI 24.8
[~2019-11-09 09:34] MED LIST changes: +PLAVIX75 MG
== END | disposition home or self-care (01) ==
LOC: D.CT 09:30
PROVIDERS: ATTEND Internal Medicine Cardiovascular Disease
DX: I71.4 Abdominal aortic aneurysm, without rupture (principal)

== ENCOUNTER → 2020-07-14 08:48 | Outpatient (CLI) | payer MEDICARE, OTHER ==
[2019-05-29 07:31] VITALS: BMI 24.8
== END | disposition home or self-care (01) ==
LOC: D.RT 07-11 13:00
PROVIDERS: ATTEND Internal Medicine Pulmonary Disease
DX: J44.9 Chronic obstructive pulmonary disease, unspecified (principal); Z20.822 Contact with and (suspected) exposure to COVID-19